=== PATIENT | female | born 1985 | race Caucasian/White ===

== ENCOUNTER 2022-12-29 15:16 | Inpatient (IN) | payer OTHER, BC ==
[2022-12-29] MEDS ORDERED: Calcium Gluc 4.6 MEQ/10 ML (100 MG/ML) ONE ×3 (15:22→16:40)
[2022-12-29] MEDS ORDERED: Norepinephrine 4 MG/4 ML VIAL ONE ×2 (15:25→15:33)
[2022-12-29] MEDS ORDERED: Tranexamic Acid 1,000 MG/10 ML VIAL ONE (15:25)
[2022-12-29 15:39] LABS: O2 Tension (PaO2), arterial 61.3 mmHg (80.0-100.0); pH, Arterial 7.27 (7.35-7.45)
[2022-12-29 15:40] LABS: Actual Bicarbonate (HCO3a) 18.8 mEq/L (22-28); Base Excess (BEa) -7.8 mEq/L (-2.0 to +3.0); Calcium, Ionized (arterial) 1.08 mmol/L (1.12-1.30); Carboxyhemoglobin (COHb) 0.3 gm% (0.0-3.0); Hemoglobin (Hb) 13.7 g/dL (14.0-18.0)
[2022-12-29] MEDS ORDERED: CEFAZOLIN 2 GM VIAL ONE (15:40)
[2022-12-29] MEDS ORDERED: Boostrix 0.5 ML (Tdap) VIAL (>/=7 yrs of age) ONE (15:40)
[2022-12-29 15:41] LABS: Analyzer IN Cardio ER; Puncture Site LRA
[2022-12-29] MEDS ORDERED: Sodium Chloride 3% 500 ML IVPB SCH (15:45)
[2022-12-29] MEDS ORDERED: Sodium Bicarb 50 MEQ/50 ML VIAL ONE (15:57)
[2022-12-29 17:13] LABS: Actual Bicarbonate (HCO3a) 24.3 mEq/L (22-28); CO2 Tension 34.2 mmHg (35.0-45.0); Carboxyhemoglobin (COHb) 0.2 gm% (0.0-3.0); Hemoglobin (Hb) 10.6 g/dL (12.0-16.0); O2 Tension (PaO2), arterial 96.9 mmHg (80.0-100.0); Potassium - ABG Lab 3.04 mmol/L (3.70-5.30); pH, Arterial 7.47 (7.35-7.45)
[2022-12-29 17:14] LABS: Analyzer IN Cardio ER; Puncture Site Arterial Line
[2022-12-29 17:18] LABS: #Lymphocytes 1.2 thou/uL (1.20-3.40); #Monocytes 0.4 thou/uL (0.11-0.59); #Neutrophils 8.8 thou/uL (1.40-6.50); %Basophils 0.3 % (0.0-1.0); %Eosinophils 0.4 % (0.0-10.0); %Monocytes 3.9 % (0.0-10.0); %Neutrophils 84.4 % (42.0-75.0); Mean Corpuscular Volume 94.4 fl (78.0-98.0); Mean Platelet Volume 6.8 fL (7.4-10.4); Platelet Count 156 10x3/uL (130-400); RBC Distribution Width 11.4 % (11.5-14.5); Red Blood Cell (RBC) Count 3.02 mill/uL (4.20-5.40); White Blood Cell (WBC) Count 10.5 10x3/uL (4.8-10.8)
[2022-12-29] MEDS ORDERED: hydrALAZINE 20 MG/ML VIAL SLOW IVP PRN (17:25)
[2022-12-29] MEDS ORDERED: Ipratropium/Albuterol 3 ML NEB NEB PRN (17:25)
[2022-12-29] MEDS ORDERED: Insulin Regular 300 UNITS/3 ML VIAL SC PRN (17:25)
[2022-12-29] MEDS ORDERED: Dextrose 5% in Water 1,000 ML IV PRN (17:25)
[2022-12-29] MEDS ORDERED: Dextrose 50% Abboject 50 ML SYRINGE SLOW IVP PRN (17:25)
[2022-12-29] MEDS ORDERED: Ondansetron PF 4 MG/2 ML Vial IVP PRN (17:25)
[2022-12-29 17:28] LABS: BHCG - Serum Negative (NEGATIVE); Pregs Control Background? CLEAR/WHITE (CLR/WHITE); Pregs Control Bar Appear? YES (CONTROL BAR)
[2022-12-29 17:29] LABS: INR-International Normal Ratio 1.8; Prothrombin Time 22.1 sec (12.0-14.7)
[2022-12-29 17:30] LABS: PTT 51.1 sec (22.9-36.1)
[2022-12-29] MEDS ORDERED: Sodium Chloride 0.9% 1,000 ML IV SCH (17:30)
[2022-12-29 17:37] LABS: ALT (SGPT) 36 U/L (8-55); AST (SGOT) 67 U/L (5-34); Acetaminophen Less than 10.0 mcg/mL (10.0-30.0); Albumin 2.8 g/dL (3.5-5.0); Alcohol Less than 10 mg/dL (Less than 10); Alkaline Phosphatase 51 U/L (40-110); Anion Gap 15 mmol/L (10-20); BUN (Urea Nitrogen) 16 mg/dL (7.0-18.7); Bilirubin, Total 1.2 mg/dL (0.2-1.2); Calc. Creatinine Clearance 0 mL/min (70-130); Calcium 10.2 mg/dL (7.8-10.44); Carbon Dioxide 21 mmol/L (22-29); Chloride 113 mmol/L (98-107); Estimated GFR 88; Globulin 1.8 g/dL (2.4-3.5); Glucose 123 mg/dL (70-105); Potassium 3.2 mmol/L (3.5-5.1); Protein, Total 4.6 g/dL (6.0-8.3); Salicylate Less than 8.0 mg/dL (15.0-30.0); Sodium 146 mmol/L (136-145)
[2022-12-29 17:45] LABS: Phosphorus 4.4 mg/dL (2.3-4.7)
[2022-12-29 17:57] LABS: Magnesium 1.6 mg/dL (1.6-2.6)
[2022-12-29] MEDS ORDERED: Potassium Chloride 20 MEQ in Premix Bag 1 BAG IVPB SCH (18:00)
[2022-12-29] MEDS ORDERED: Acetaminophen 500 MG TAB PO PRN (18:07)
[2022-12-29] MEDS ORDERED: Magnesium 2 GM/50 ML(in water) 2 GM in Premix Bag 1 BAG IVPB SCH (18:30)
[2022-12-29] MEDS: NOREPINEPHRINE 8 MG/250 ML-D5W 250 ML IVPB SCH (18:42)
[2022-12-29] MEDS: Ipratropium/Albuterol 3 ML NEB NEB SCH (19:00)
[2022-12-29] MEDS ORDERED: Hydrocortisone Sod Succ/PF 100 mg/2 ml Vial IVP SCH (19:45)
[2022-12-29] MEDS: Famotidine/PF 20 mg/2ml Vial SLOW IVP SCH (19:59)
[2022-12-29 21:17] LABS: Hemoglobin 7.5 g/dL (12.0-16.0); Mean Corpuscular HGB CONC 35.9 g/dL (32.0-36.0); Mean Corpuscular Volume 92.1 fl (78.0-98.0); Mean Platelet Volume 6.8 fL (7.4-10.4); Platelet Count 142 10x3/uL (130-400); RBC Distribution Width 11.4 % (11.5-14.5); Red Blood Cell (RBC) Count 2.27 mill/uL (4.20-5.40); White Blood Cell (WBC) Count 15.6 10x3/uL (4.8-10.8)
[2022-12-29 21:37] LABS: Anion Gap 15 mmol/L (10-20); BUN (Urea Nitrogen) 18 mg/dL (7.0-18.7); Calc. Creatinine Clearance 121 mL/min (70-130); Carbon Dioxide 18 mmol/L (22-29); Chloride 115 mmol/L (98-107); Estimated GFR 78; Glucose 172 mg/dL (70-105); Potassium 3.3 mmol/L (3.5-5.1); Sodium 145 mmol/L (136-145)
[2022-12-29] MEDS ORDERED: Potassium Chloride 40 MEQ in Premix Bag 1 BAG IVPB SCH (22:45)
[2022-12-29] MEDS ORDERED: Calcium Chloride 1 GM/10 ML Abboject SYRINGE IVP SCH (23:00)
[2022-12-29] MEDS ORDERED: Lactated Ringer's 1,000 ML IV SCH (23:00)
[2022-12-29 23:12] LABS: Actual Bicarbonate (HCO3a) 21.5 mEq/L (22-28); Base Excess (BEa) -1.7 mEq/L (-2.0 to +3.0); Calcium, Ionized (arterial) 1.14 mmol/L (1.12-1.30); Carboxyhemoglobin (COHb) 1.1 gm% (0.0-3.0); Hemoglobin (Hb) 7.6 g/dL (12.0-16.0); O2 Tension (PaO2), arterial 451.8 mmHg (80.0-100.0); Potassium - ABG Lab 3.44 mmol/L (3.70-5.30); Puncture Site ALINE; pH, Arterial 7.47 (7.35-7.45)
[2022-12-30] MEDS: Lactated Ringer's 1,000 ML IV SCH ×3 (01:07→17:52)
[2022-12-30] MEDS: Hydrocortisone Sod Succ/PF 100 mg/2 ml Vial IVP SCH ×4 (01:07→18:33)
[2022-12-30 01:36] LABS: Bilirubin Negative (Negative); Blood, Urine Negative (Negative); Clarity Clear (Clear); Glucose, Urine (Dipstick) 50 mg/dL (Negative); Ketone, Urine Trace mg/dL (Negative); Leukocyte Negative Leu/uL (Negative); Nitrite Negative (Negative); Protein, Urine (Dipstick) Negative (Neg-Trace); Urobilinogen Normal mg/dL (Less than 2)
[2022-12-30 01:44] LABS: Amphetamine Not Detected (NotDetected); Barbiturates Screen Not Detected (NotDetected); Benzodiazepine Screen Not Detected (NotDetected); Cocaine Metabolite Screen Not Detected (NotDetected); Methadone Not Detected (NotDetected); Methamphetamine Not Detected (NotDetected); Opiate Screen Not Detected (NotDetected); Oxycodone Screen Not Detected (NotDetected); Phencyclidine (PCP) Not Detected (NotDetected); THC/Cannabinoid Screen Not Detected (NotDetected); Tricyclic Screen Not Detected (NotDetected)
[2022-12-30 04:36] LABS: Anion Gap 13 mmol/L (10-20); BUN (Urea Nitrogen) 18 mg/dL (7.0-18.7); Calc. Creatinine Clearance 123 mL/min (70-130); Calcium 8.6 mg/dL (7.8-10.44); Carbon Dioxide 20 mmol/L (22-29); Chloride 116 mmol/L (98-107); Estimated GFR 80; Glucose 186 mg/dL (70-105); Magnesium 1.6 mg/dL (1.6-2.6); Phosphorus 3.8 mg/dL (2.3-4.7); Sodium 144 mmol/L (136-145)
[2022-12-30 04:37] LABS: Lactic Acid 4.8 mmol/L (0.5-2.2)
[2022-12-30 04:41] LABS: Hemoglobin 8.6 g/dL (12.0-16.0); Mean Corpuscular HGB CONC 35.2 g/dL (32.0-36.0); Mean Corpuscular Hemoglobin 31.5 pg (27.0-31.0); Mean Corpuscular Volume 89.5 fl (78.0-98.0); RBC Distribution Width 12.4 % (11.5-14.5); Red Blood Cell (RBC) Count 2.73 mill/uL (4.20-5.40)
[2022-12-30] MEDS: Levothyroxine Sodium 400 MCG in Sodium Chloride 0.9% 100 ML IVPB SCH ×3 (04:57→15:14)
[2022-12-30] MEDS ORDERED: Lactated Ringer's 1,000 ML IV SCH (05:00)
[2022-12-30] MEDS ORDERED: Magnesium Sulfate In Water 4 GM in Premix Bag 1 BAG IVPB SCH (05:00)
[2022-12-30 05:10] LABS: Band 18 % (5-11); Crenated RBC SLIGHT = 1-5 cells (100X) (None Seen); Lymphocytes 8 % (21-51); MDiff Complete? YES; Mean Platelet Volume 7.9 fL (7.4-10.4); Metamyelocyte 3 % (0-0); Monocytes 3 % (0-10); Neutrophil 68 % (42-75); Platelet Count 83 10x3/uL (130-400); Platelet Morphology Comment Appears Decreased; Polychromasia SLIGHT = 2-3 cells (100X) (0-2/hpf)
[2022-12-30 05:17] VITALS: BMI 30.9
[2022-12-30] MEDS: Ipratropium/Albuterol 3 ML NEB NEB SCH ×3 (06:26→18:08)
[2022-12-30 06:58] LABS: Actual Bicarbonate (HCO3a) 19.7 mEq/L (22-28); Base Excess (BEa) -4.4 mEq/L (-2.0 to +3.0); CO2 Tension 31.3 mmHg (35.0-45.0); Calcium, Ionized (arterial) 1.14 mmol/L (1.12-1.30); Carboxyhemoglobin (COHb) 1.1 gm% (0.0-3.0); Hemoglobin (Hb) 6.5 g/dL (12.0-16.0); O2 Tension (PaO2), arterial 185.6 mmHg (80.0-100.0); Potassium - ABG Lab 4.49 mmol/L (3.70-5.30); pH, Arterial 7.42 (7.35-7.45)
[2022-12-30 07:04] LABS: ALV-art Gradient 203.075 mmHg (0-20); Puncture Site Arterial Line
[2022-12-30] MEDS ORDERED: Magnesium 2 GM/50 ML(in water) 2 GM in Premix Bag 1 BAG IVPB SCH (07:30)
[2022-12-30] MEDS ORDERED: Sodium Phosphate 15 MMOL in Sodium Chloride 0.9% 250 ML 250 ML IVPB SCH (07:30)
[2022-12-30] MEDS: NOREPINEPHRINE 8 MG/250 ML-D5W 250 ML IVPB SCH ×3 (08:26→18:32)
[2022-12-30] MEDS: Famotidine/PF 20 mg/2ml Vial SLOW IVP SCH ×2 (08:36→20:11)
[2022-12-30 12:24] LABS: INR-International Normal Ratio 1.5; PTT 31.2 sec (22.9-36.1); Prothrombin Time 18.8 sec (12.0-14.7)
[2022-12-30 12:30] LABS: #Lymphocytes 3.1 thou/uL (1.20-3.40); #Neutrophils 11.9 thou/uL (1.40-6.50); %Basophils 0.1 % (0.0-1.0); %Eosinophils 0.2 % (0.0-10.0); %Lymphocytes 19.5 % (21.0-51.0); %Monocytes 6.2 % (0.0-10.0); Hemoglobin 8.1 g/dL (12.0-16.0); Mean Corpuscular HGB CONC 35.5 g/dL (32.0-36.0); Mean Corpuscular Hemoglobin 32.2 pg (27.0-31.0); Mean Corpuscular Volume 90.6 fl (78.0-98.0); Mean Platelet Volume 9.1 fL (7.4-10.4); Platelet Count 59 10x3/uL (130-400); RBC Distribution Width 12.7 % (11.5-14.5); Red Blood Cell (RBC) Count 2.52 mill/uL (4.20-5.40); White Blood Cell (WBC) Count 16.1 10x3/uL (4.8-10.8)
[2022-12-30 12:31] LABS: Anion Gap 14 mmol/L (10-20); BUN (Urea Nitrogen) 18 mg/dL (7.0-18.7); Calc. Creatinine Clearance 139 mL/min (70-130); Calcium 7.4 mg/dL (7.8-10.44); Carbon Dioxide 18 mmol/L (22-29); Chloride 113 mmol/L (98-107); Estimated GFR 92; Glucose 194 mg/dL (70-105); Potassium 4.8 mmol/L (3.5-5.1); Sodium 140 mmol/L (136-145)
[2022-12-30 12:49] LABS: Lactic Acid 4.1 mmol/L (0.5-2.2)
[2022-12-30 18:10] VITALS: BP 102/69
[2022-12-30 20:06] VITALS: TEMP 99.3
== END 2022-12-30 14:23 | disposition expired | DRG 963 ==
LOC: EDSEX 15:16 → ERS 15:16 → CCU 17:27
PROVIDERS: ADMIT Surgery; ATTEND Surgery
PROC: 3E043XZ Introduction of Vasopressor into Central Vein, Percutaneous Approach (ICD-10-PCS; principal; 2022-12-29)
PROC: 5A1935Z Respiratory Ventilation, Less than 24 Consecutive Hours (ICD-10-PCS; 2022-12-29)
PROC: 30233L1 Transfusion of Nonautologous Fresh Plasma into Peripheral Vein, Percutaneous Approach (ICD-10-PCS; 2022-12-29)
PROC: 30233N1 Transfusion of Nonautologous Red Blood Cells into Peripheral Vein, Percutaneous Approach (ICD-10-PCS; 2022-12-29)
PROC: 30233R1 Transfusion of Nonautologous Platelets into Peripheral Vein, Percutaneous Approach (ICD-10-PCS; 2022-12-29)
PROC: 30233M1 Transfusion of Nonautologous Plasma Cryoprecipitate into Peripheral Vein, Percutaneous Approach (ICD-10-PCS; 2022-12-29)
PROC: 03HY32Z Insertion of Monitoring Device into Upper Artery, Percutaneous Approach (ICD-10-PCS; 2022-12-29)
PROC: 02HV33Z Insertion of Infusion Device into Superior Vena Cava, Percutaneous Approach (ICD-10-PCS; 2022-12-29)
PROC: 0W9930Z Drainage of Right Pleural Cavity with Drainage Device, Percutaneous Approach (ICD-10-PCS; 2022-12-29)
DX: S27.2XXA Traumatic hemopneumothorax, initial encounter (principal); S06.5XAA Traumatic subdural hemorrhage with loss of consciousness status unknown, initial encounter; S06.6XAA Traumatic subarachnoid hemorrhage with loss of consciousness status unknown, initial encounter; R40.2112 Coma scale, eyes open, never, at arrival to emergency department; T79.4XXA Traumatic shock, initial encounter; R40.2312 Coma scale, best motor response, none, at arrival to emergency department; R40.2212 Coma scale, best verbal response, none, at arrival to emergency department; S22.41XA Multiple fractures of ribs, right side, initial encounter for closed fracture; S02.101A Fracture of base of skull, right side, initial encounter for closed fracture; S27.321A Contusion of lung, unilateral, initial encounter; G93.1 Anoxic brain damage, not elsewhere classified; D62 Acute posthemorrhagic anemia; E87.20 Acidosis, unspecified; R57.8 Other shock; S42.101A Fracture of unspecified part of scapula, right shoulder, initial encounter for closed fracture; V29.408A Other motorcycle driver injured in collision with unspecified motor vehicles in traffic accident, initial encounter
CPT/HCPCS: 36416; 36430; 36600; 70450; 70498; 71045; 71260; 72125; 72170; 74177; 78610; 80048; 80306; 80307; 81003; 82533; 82805; 83605; 83735; 84100; 84703; 85025; 85610; 85730; 86850; 86900; 86901; 90715; 94002; 94003; 94640; A9521; G0390; J0610; J1720; J3475; J3480; J3490; J7050; J7120; J7131; J7620; P9016; P9035; P9045; P9048; P9059; S0028

== ENCOUNTER 2022-12-30 14:23 | Day surgery (SDC) | payer OTHER ==
[2022-12-31] MEDS ORDERED: NOREPINEPHRINE 8 MG/250 ML-D5W 250 ML IVPB SCH (02:09)
[2022-12-31] MEDS ORDERED: Phenylephrine 40 MG/NS 250 ML 40 MG in Premix Bag 1 BAG IVPB SCH (02:15)
[2022-12-31] MEDS ORDERED: Ipratropium/Albuterol 3 ML NEB NEB PRN (02:27)
[2022-12-31] MEDS ORDERED: Piperacillin/Tazobactam 3.375 GM in Sodium Chloride 0.9% 100 ML IVPB SCH (02:30)
[2022-12-31] MEDS ORDERED: Albumin 25% 25 GM/100 ML BOT IVPB SCH (02:30)
[2022-12-31 02:45] LABS: Hemoglobin A1c 6.9 % (4.0-6.0)
[2022-12-31] MEDS ORDERED: MINERAL OIL/WHITE PETROLATUM 3.5 GM TUBE EA EYE SCH (02:45)
[2022-12-31] MEDS ORDERED: Refresh Lacri-lube Opth Oint 7 GM TUBE EA EYE SCH (02:45)
[2022-12-31 02:49] LABS: INR-International Normal Ratio 1.4; PTT 26.4 sec (22.9-36.1); Prothrombin Time 17.7 sec (12.0-14.7)
[2022-12-31 02:50] LABS: #Lymphocytes 1.4 thou/uL (1.20-3.40); #Monocytes 0.6 thou/uL (0.11-0.59); #Neutrophils 9.7 thou/uL (1.40-6.50); %Basophils 0.2 % (0.0-1.0); %Eosinophils 0.1 % (0.0-10.0); %Monocytes 4.9 % (0.0-10.0); %Neutrophils 82.8 % (42.0-75.0); Hemoglobin 6.2 g/dL (12.0-16.0); Mean Corpuscular HGB CONC 34.5 g/dL (32.0-36.0); Mean Corpuscular Hemoglobin 31.3 pg (27.0-31.0); Mean Corpuscular Volume 90.8 fl (78.0-98.0); Mean Platelet Volume 8.9 fL (7.4-10.4); Platelet Count 63 10x3/uL (130-400); RBC Distribution Width 13.5 % (11.5-14.5); Red Blood Cell (RBC) Count 1.98 mill/uL (4.20-5.40); White Blood Cell (WBC) Count 11.8 10x3/uL (4.8-10.8)
[2022-12-31 02:54] LABS: Actual Bicarbonate (HCO3a) 21.9 mEq/L (22-28); Base Excess (BEa) -1.4 mEq/L (-2.0 to +3.0); CO2 Tension 30.3 mmHg (35.0-45.0); Carboxyhemoglobin (COHb) 1.1 gm% (0.0-3.0); Hemoglobin (Hb) 6.5 g/dL (12.0-16.0); O2 Tension (PaO2), arterial 290.5 mmHg (80.0-100.0); Potassium - ABG Lab 3.87 mmol/L (3.70-5.30); pH, Arterial 7.48 (7.35-7.45)
[2022-12-31 02:56] LABS: ALV-art Gradient 384.625 mmHg (0-20); Puncture Site ALINE
[2022-12-31] MEDS ORDERED: Hydrocortisone Sod Succ/PF 300 MG in Sodium Chloride 0.9% 50 ML IVPB SCH (03:00)
[2022-12-31 03:08] LABS: ALT (SGPT) 31 U/L (8-55); AST (SGOT) 63 U/L (5-34); Albumin 2.4 g/dL (3.5-5.0); Alkaline Phosphatase 51 U/L (40-110); Anion Gap 10 mmol/L (10-20); BUN (Urea Nitrogen) 19 mg/dL (7.0-18.7); Bilirubin, Direct 0.4 mg/dL (0.1-0.3); Bilirubin, Total 0.8 mg/dL (0.2-1.2); Calc. Creatinine Clearance 0 mL/min (70-130); Calcium 7.5 mg/dL (7.8-10.44); Carbon Dioxide 22 mmol/L (22-29); Chloride 110 mmol/L (98-107); Estimated GFR 87; Globulin 1.6 g/dL (2.4-3.5); Glucose 240 mg/dL (70-105); Magnesium 1.7 mg/dL (1.6-2.6); Sodium 138 mmol/L (136-145)
[2022-12-31] MEDS: Lactated Ringer's 1,000 ML IV SCH ×2 (03:10→11:16)
[2022-12-31 03:28] VITALS: BMI 30.9
[2022-12-31 04:12] LABS: Bilirubin Negative (Negative); Blood, Urine Trace (Negative); Clarity Clear (Clear); Glucose, Urine (Dipstick) 500 mg/dL (Negative); Ketone, Urine 10 mg/dL (Negative); Leukocyte Negative Leu/uL (Negative); Nitrite Negative (Negative); Protein, Urine (Dipstick) 20 mg/dL (Neg-Trace); Specific Gravity, Urine 1.024 (1.002-1.036); Urobilinogen Normal mg/dL (Less than 2)
[2022-12-31] MEDS ORDERED: POTASSIUM CHLORIDE IVPB SCH ×2 (05:00→08:45)
[2022-12-31] MEDS ORDERED: Magnesium Sulfate In Water 4 GM in Premix Bag 1 BAG IVPB SCH ×2 (05:00→08:45)
[2022-12-31] MEDS ORDERED: SODIUM CHLORIDE 0.9% IVPB SCH ×3 (05:00→08:45)
[2022-12-31] MEDS: Ipratropium/Albuterol 3 ML NEB NEB SCH ×5 (05:25→18:39)
[2022-12-31] MEDS ORDERED: POTASSIUM PHOSPHATE IVPB SCH (05:30)
[2022-12-31] MEDS: Furosemide 40 MG/4 ML VIAL SLOW IVP SCH ×2 (05:31→11:58)
[2022-12-31 06:34] LABS: INR-International Normal Ratio 1.4; PTT 31.5 sec (22.9-36.1); Prothrombin Time 17.8 sec (12.0-14.7)
[2022-12-31 06:38] LABS: Lactic Acid 2.5 mmol/L (0.5-2.2)
[2022-12-31 06:41] LABS: #Lymphocytes 0.7 thou/uL (1.20-3.40); #Monocytes 0.4 thou/uL (0.11-0.59); #Neutrophils 6.7 thou/uL (1.40-6.50); %Basophils 0.3 % (0.0-1.0); %Eosinophils 0.1 % (0.0-10.0); %Lymphocytes 8.8 % (21.0-51.0); %Monocytes 5.3 % (0.0-10.0); %Neutrophils 85.4 % (42.0-75.0); Hemoglobin 5.2 g/dL (12.0-16.0); Mean Corpuscular HGB CONC 35.5 g/dL (32.0-36.0); Mean Corpuscular Hemoglobin 32.5 pg (27.0-31.0); Mean Corpuscular Volume 91.5 fl (78.0-98.0); Mean Platelet Volume 8.8 fL (7.4-10.4); Platelet Count 38 10x3/uL (130-400); RBC Distribution Width 13.4 % (11.5-14.5); Red Blood Cell (RBC) Count 1.61 mill/uL (4.20-5.40); White Blood Cell (WBC) Count 7.9 10x3/uL (4.8-10.8)
[2022-12-31 06:45] LABS: ALT (SGPT) 28 U/L (8-55); AST (SGOT) 61 U/L (5-34); Albumin 3.5 g/dL (3.5-5.0); Alkaline Phosphatase 44 U/L (40-110); Anion Gap 12 mmol/L (10-20); BUN (Urea Nitrogen) 18 mg/dL (7.0-18.7); Bilirubin, Total 1.3 mg/dL (0.2-1.2); Calc. Creatinine Clearance 133 mL/min (70-130); Calcium 7.9 mg/dL (7.8-10.44); Carbon Dioxide 23 mmol/L (22-29); Chloride 107 mmol/L (98-107); Estimated GFR 82; Globulin 1.5 g/dL (2.4-3.5); Glucose 260 mg/dL (70-105); Magnesium 2.9 mg/dL (1.6-2.6); Phosphorus 2.7 mg/dL (2.3-4.7); Potassium 3.9 mmol/L (3.5-5.1); Sodium 138 mmol/L (136-145)
[2022-12-31 07:23] LABS: Actual Bicarbonate (HCO3a) 24.2 mEq/L (22-28); Base Excess (BEa) -0.6 mEq/L (-2.0 to +3.0); CO2 Tension 40.2 mmHg (35.0-45.0); Carboxyhemoglobin (COHb) 1.5 gm% (0.0-3.0); Potassium - ABG Lab 4.02 mmol/L (3.70-5.30)
[2022-12-31 07:25] LABS: Puncture Site Arterial Line
[2022-12-31 07:31] LABS: Bilirubin Negative (Negative); Blood, Urine Trace (Negative); Clarity Clear (Clear); Glucose, Urine (Dipstick) 100 mg/dL (Negative); Ketone, Urine Negative (Negative); Leukocyte Negative Leu/uL (Negative); Nitrite Negative (Negative); Protein, Urine (Dipstick) Negative (Neg-Trace); Specific Gravity, Urine 1.007 (1.002-1.036); Urobilinogen Normal mg/dL (Less than 2)
[2022-12-31] MEDS: Piperacillin/Tazobactam 3.375 GM in Sodium Chloride 0.9% 100 ML IVPB SCH ×2 (07:59→15:56)
[2022-12-31] MEDS ORDERED: Potassium Phosphate 20 MMOL in Sodium Chloride 0.9% 250 ML 250 ML IVPB SCH (08:45)
[2022-12-31] MEDS ORDERED: Furosemide 40 MG/4 ML VIAL SLOW IVP SCH (08:45)
[2022-12-31] MEDS: HUMULIN R 100 UNITS in Sodium Chloride 0.9% 100 ML IVPB SCH ×2 (09:02→18:35)
[2022-12-31 09:13] VITALS: TEMP 97.5
[2022-12-31 09:34] LABS: Glucose 271 mg/dL (70-105)
[2022-12-31 10:21] LABS: Glucose 256 mg/dL (70-105)
[2022-12-31] MEDS ORDERED: Furosemide 40 MG/4 ML VIAL ONE (11:05)
[2022-12-31 11:40] LABS: Lactic Acid 3.9 mmol/L (0.5-2.2)
[2022-12-31 11:46] LABS: CK (CPK) 2893 U/L (29-168); Glucose 237 mg/dL (70-105)
[2022-12-31 11:57] LABS: Troponin I 0.507 ng/mL (< 0.028)
[2022-12-31] MEDS ORDERED: Hydrocortisone Sod Succ/PF 100 mg/2 ml Vial IVP SCH (12:00)
[2022-12-31 12:21] LABS: Hemoglobin 7.8 g/dL (12.0-16.0)
[2022-12-31 12:36] LABS: Glucose 223 mg/dL (70-105)
[2022-12-31 13:24] LABS: Actual Bicarbonate (HCO3a) 26.8 mEq/L (22-28); Base Excess (BEa) 1.7 mEq/L (-2.0 to +3.0); Calcium, Ionized (arterial) 1.14 mmol/L (1.12-1.30); Carboxyhemoglobin (COHb) 1.3 gm% (0.0-3.0); Hemoglobin (Hb) 7.9 g/dL (12.0-16.0); Potassium - ABG Lab 3.34 mmol/L (3.70-5.30); pH, Arterial 7.39 (7.35-7.45)
[2022-12-31 13:26] LABS: Puncture Site Arterial Line
[2022-12-31 14:29] VITALS: BP 105/51
[2022-12-31 18:16] LABS: Actual Bicarbonate (HCO3a) 25.2 mEq/L (22-28); Base Excess (BEa) 1.4 mEq/L (-2.0 to +3.0); CO2 Tension 35.8 mmHg (35.0-45.0); Calcium, Ionized (arterial) 1.13 mmol/L (1.12-1.30); Carboxyhemoglobin (COHb) 1.2 gm% (0.0-3.0); Hemoglobin (Hb) 6.8 g/dL (12.0-16.0); O2 Tension (PaO2), arterial 249.8 mmHg (80.0-100.0); Potassium - ABG Lab 3.07 mmol/L (3.70-5.30); pH, Arterial 7.47 (7.35-7.45)
[2022-12-31 18:17] LABS: Puncture Site Arterial Line
[2022-12-31 18:27] LABS: Bilirubin Negative (Negative); Blood, Urine 1+ (Negative); Clarity Clear (Clear); Glucose, Urine (Dipstick) Normal (Negative); Ketone, Urine Negative (Negative); Leukocyte Negative Leu/uL (Negative); Nitrite Negative (Negative); Protein, Urine (Dipstick) Negative (Neg-Trace); Specific Gravity, Urine 1.007 (1.002-1.036); Urobilinogen Normal mg/dL (Less than 2); pH, Urine 5.5 (5.0-9.0)
[2022-12-31 18:30] LABS: INR-International Normal Ratio 1.4; PTT 30.8 sec (22.9-36.1); Prothrombin Time 18.1 sec (12.0-14.7)
[2022-12-31 19:21] LABS: Hemoglobin 7.1 g/dL (12.0-16.0); Mean Corpuscular HGB CONC 34.9 g/dL (32.0-36.0); Mean Corpuscular Volume 86.1 fl (78.0-98.0); Mean Platelet Volume 8.8 fL (7.4-10.4); Platelet Count 51 10x3/uL (130-400); RBC Distribution Width 15.1 % (11.5-14.5); Red Blood Cell (RBC) Count 2.38 mill/uL (4.20-5.40); White Blood Cell (WBC) Count 9.6 10x3/uL (4.8-10.8)
[2022-12-31 19:49] LABS: Anisocytosis SLIGHT = 6-15 cells (100X) (0-5/hpf); Band 23 % (5-11); Lymphocytes 4 % (21-51); MDiff Complete? YES; Monocytes 3 % (0-10); Neutrophil 70 % (42-75); Platelet Morphology Comment Appears Decreased
[2022-12-31 21:44] LABS: ALT (SGPT) 31 U/L (8-55); AST (SGOT) 71 U/L (5-34); Albumin 3.2 g/dL (3.5-5.0); Alkaline Phosphatase 46 U/L (40-110); Anion Gap 14 mmol/L (10-20); BUN (Urea Nitrogen) 17 mg/dL (7.0-18.7); Bilirubin, Total 1.5 mg/dL (0.2-1.2); Calc. Creatinine Clearance 129 mL/min (70-130); Calcium 8.5 mg/dL (7.8-10.44); Carbon Dioxide 23 mmol/L (22-29); Chloride 116 mmol/L (98-107); Estimated GFR 79; Globulin 1.8 g/dL (2.4-3.5); Glucose 129 mg/dL (70-105); Magnesium 2.4 mg/dL (1.6-2.6); Phosphorus 1.1 mg/dL (2.3-4.7); Potassium 3.2 mmol/L (3.5-5.1); Sodium 150 mmol/L (136-145)
[2022-12-31 21:46] LABS: Bilirubin, Direct 0.6 mg/dL (0.1-0.3)
[2023-01-01 08:21] LABS: Hemoglobin (Hb) 4.9 g/dL (12.0-16.0)
== END 2022-12-31 20:00 | disposition expired ==
LOC: SDC/OP 14:23 → CCU 14:23 → SDC/OP 12-31 20:00
DX: S22.41XA Multiple fractures of ribs, right side, initial encounter for closed fracture (principal); R06.03 Acute respiratory distress; J98.11 Atelectasis; X58.XXXA Exposure to other specified factors, initial encounter
CPT/HCPCS: 36415; 36416; 36430; 71045; 80053; 81003; 82248; 82550; 82805; 82977; 83036; 83605; 83735; 83880; 84100; 84484; 85025; 85384; 85610; 85730; 86850; 86900; 86901; 87205; 93005; 93010; 94003; J1720; J1815; J1940; J2543; J3475; J3480; J3490; J7050; J7120; J7620; P9016; P9047